=== PATIENT | female | born 1995 | race African-American/Black ===

== ENCOUNTER → 2017-04-14 | Emergency (ER) | payer MEDICAID ==
[~2017-04-14] MED LIST: Ibuprofen TAB* 600 MG PO ONE
--- NOTE | 2017-04-14 14:57 | ED ---
Throat Pain/Nasal Congestion - HPI Summary HPI Summary: 21 female presents to ED with complaints of wisdom tooth pain and left ear pain. Patient states symptoms have been ongoing for the past 2-3 days. States she is in the process of having facial reconstruction surgery. States her wisdom tooth is coming in crooked and it is painful. States she also feels as though her left ear is plugged. Denies discharge, erythema, difficulty swallowing, trouble breathing and fever/chills. States some of her incisions inside cheek are open and she is nervous that it may become infected. Also of complaint is bruising on b/l knees that occurred from falling several days ago and she is concerned why they are still bruised and sore. Denies any PMHx. No medications. No other complaints. - History of Current Complaint Chief Complaint: EDGeneral Time Seen by Provider: 04/14/17 13:32 Hx Obtained From: Patient Onset/Duration: Sudden Onset, Lasting Days, Still Present Severity: Moderate Cough: None PMH/Surg Hx/FS Hx/Imm Hx Endocrine/Hematology History: Denies: Hx Diabetes Cardiovascular History: Denies: Hx Hypertension Respiratory History: Denies: Hx Asthma - Surgical History Surgery Procedure, Year, and Place: facial reconstruction, multiple over the course of 4 years. - Immunization History Immunizations Up to Date: Yes Infectious Disease History: No Infectious Disease History: Denies: Traveled Outside the [place] in Last 30 Days - Family History Known Family History: Positive: None - Social History Alcohol Use: None Substance Use Type: Reports: None Smoking Status (MU): Never Smoked Tobacco Review of Systems Constitutional: Negative Positive: Dental Pain, Ear Ache Cardiovascular: Negative Respiratory: Negative Skin: Negative All Other Systems Reviewed And Are Negative: Yes Physical Exam Triage Information Reviewed: Yes Vital Signs On Initial Exam: Initial Vitals Temp Pulse Resp BP Pulse Ox 97.8 F 74 17 137/84 99 04/14/17 13:36 04/14/17 13:36 04/14/17 13:36 04/14/17 13:36 04/14/17 13:36 Vital Signs Reviewed: Yes Appearance: Positive: Well-Appearing, No Pain Distress, Well-Nourished Skin: Positive: Warm, Skin Color Reflects Adequate Perfusion, Dry. Negative: Cold, Cyanosis @, Pale, Erythema @ Head/Face: Positive: Other - facial reconstruction in process, missing bottom lip. Eyes: Positive: Normal, Conjunctiva Clear ENT: Positive: Hearing grossly normal, Pharynx normal, Pharyngeal erythema, TMs normal - left EAC exessive cerumen noted, not impacted., TM red, Dental tenderness. Negative: Nasal congestion, Nasal drainage Dental: Positive: Gross Decay/Caries @, Other - left lower wisdom tooth appears to be coming in, no erythema, abscess, discharge, or open incisions noted. no sign of infection appreciated. Negative: Abscess @, Cellulitis @ Neck: Positive: Supple, Nontender, No Lymphadenopathy Respiratory/Lung Sounds: Positive: Clear to Auscultation, Breath Sounds Present. Negative: Rales, Rhonchi, Wheezes Cardiovascular: Positive: Normal, RRR, Pulses are Symmetrical in both Upper and Lower Extremities. Negative: Murmur, Rub Abdomen Description: Positive: Nontender, No Organomegaly, Soft Bowel Sounds: Positive: Present Musculoskeletal: Positive: Normal, Strength/ROM Intact Neurological: Positive: Normal, Sensory/Motor Intact, Alert, Oriented to Person Place, Time - [place] Coma Scale Coma Scale Total: 15 Diagnostics - Vital Signs Vital Signs Temp Pulse Resp BP Pulse Ox 04/14/17 13:36 97.8 F 74 17 137/84 99 - Laboratory Lab Statement: Any lab studies that have been ordered have been reviewed, and results considered in the medical decision making process. EENT Course/Dx - Course Course Of Treatment: will treat pain with ibuprofen as patient has not tried anything thus far. given dose while in ED. salt water swishes. given antibiotic to prevent infection, debrox for ear. aware of worsening signs and symptoms and to return if occur. follow up with pcp/ dentist and surgeon. Cool compresses. - Differential Diagnoses Differential Diagnoses: Cellulitis, Cerumen Impaction, Dental Abscess, Dental Caries, Fracture, Fractured Tooth, Otitis Externa, Otitis Media - Diagnoses Provider Diagnoses: Pain, dental, Excessive cerumen in left ear canal Discharge - Discharge Plan Condition: Stable Disposition: HOME Prescriptions: Amoxicillin PO (*) [Amoxicillin 500 MG CAP*] 500 mg PO Q12H #20 cap Carbamide Peroxide 6.5% OTIC* [DEBROX 6.5% Otic*] 5 drop LEFT EAR BID #1 bottle Ibuprofen TAB* [Motrin TAB* 600 MG] 600 mg PO Q6H PRN #20 tab PRN Reason: Pain Patient Education Materials: Cerumen Impaction (ED), Toothache (ED) Referrals: Non Staff,Doctor [Primary Care Provider] - Additional Instructions: Take prescribed medication as directed. Use ear drops as prescribed for 4 days to help with wax build up. Zyrtec or antihistamine over the counter will also help with ear symptoms. Ibuprofen for pain every 6-8 hours as needed, take with food. Drink plenty of fluids. Ice bruises on legs. Salt water swishes. Oral numbing topical solution on gums as needed. Any new or worsening symptoms please seek medical attention promptly. Follow up with PCP. Call and make an appointment with surgeon.
[2017-04-14 15:28] VITALS: BP 108/74
== END | disposition home or self-care (01) ==
LOC: ED 13:20
DX: H61.22 Impacted cerumen, left ear (principal); K08.89 Other specified disorders of teeth and supporting structures; H92.02 Otalgia, left ear
CPT/HCPCS: 99282; A9270-GY